=== PATIENT | male | born 1985 | race Two or more races ===

== ENCOUNTER 2018-04-03 16:32 | Emergency (ER) | payer SELFPAY ==
[2018-04-03] MEDS ORDERED: HYDROMORPHONE HCL INJ/PF 2 MG/ML AMPULE IV ONE (17:58)
[2018-04-03] MEDS ORDERED: DEXAMETHASONE SOD PHOS INJ 10 MG/1 ML VIAL IV ONE (17:58)
--- NOTE | 2018-04-03 18:08 | ER Document Report ---
ED Medical Screen (RME) - General Chief Complaint: Toothache Stated Complaint: TOOTHACHE Time Seen by Provider: 04/03/18 17:50 Mode of Arrival: Ambulatory Information source: Patient Notes: Patient is a 32-year-old male comes to emergency room with complaint of right sided face swelling. Patient states that got this being approximately 2 months ago while he was in [place] and then got better and has not had a problem with it since then. 15 days ago he started to notice a little bit of discomfort in his lower tooth area. It is progressively gotten worse but it exploded with discomfort pain and swelling in the past 2 days. Patient states he is unable to open his mouth at all. He has not eaten in 2-3 days. He states he has had fevers at night. He is able to swallow his own secretions and to drink fluids but is not able to open his mouth large enough to get any type of food inside. Patient denies any other medical problems he smokes less than 1/2 pack cigarettes a day and he works as a office cleaner. He has no known drug allergies. TRAVEL OUTSIDE OF THE [place] IN LAST 30 DAYS: No - HPI Onset: Last week Onset/Duration: Constant Quality of pain: Fullness, Pressure, Sharp, Stabbing, Throbbing Severity: Severe Pain Level: 4 Associated Symptoms: Chills, Fever Similar symptoms previously: Yes Recently seen / treated by doctor: No - Related Data Smoking: Less than 1 pack/day Frequency of alcohol use: Rare Drug Abuse: None What do you do for a living?: She will refer Allergies/Adverse Reactions: No Known Allergies Allergy (Unverified 04/03/18 16:32) Past Medical History - General Information source: Patient - Social History Cigarette use (# per day): Yes Chew tobacco use (# tins/day): No Frequency of alcohol use: Rare Drug Abuse: None Occupation: Refer Family history: Reviewed & Not Pertinent Renal/ Medical History: Denies: Hx Peritoneal Dialysis Review of Systems - Review of Systems Constitutional: No symptoms reported EENT: Dental problem - Is Cardiovascular: No symptoms reported Respiratory: No symptoms reported Gastrointestinal: No symptoms reported Genitourinary: No symptoms reported Male Genitourinary: No symptoms reported Musculoskeletal: No symptoms reported Skin: No symptoms reported Hematologic/Lymphatic: No symptoms reported Neurological/Psychological: No symptoms reported -: Yes All other systems reviewed and negative Physical Exam - Vital signs Vitals: Temp Pulse Resp BP Pulse Ox 98.5 F 76 16 135/90 H 99 04/03/18 16:35 04/03/18 16:35 04/03/18 16:35 04/03/18 16:35 04/03/18 16:35 Interpretation: Hypertensive - Notes Notes: Physical exam . Patient is a well-nourished well-developed 32-year-old male who is in no distress currently but he is in moderate in obvious pain and discomfort. Head: Examination of the head shows been normocephalic although the right side of his face is moderately swollen from the lower jaw. The swelling extends from the angle of the jaw forward to the chin and from there up to mid cheek. Further evaluation of the oral cavity is not capable of being done since patient has almost complete trismus and teeth will not move more than 1/8 of an inch. Palpation of this area shows it to be somewhat firm and warm. Heart: Examination patient's chest and lungs show he has bilateral breath sounds increased and clear to auscultation. He has a regular rate and rhythm cardiac. I have performed the initial evaluation of the patient and he is currently stable. I have ordered labs and diagnostic studies and patient will be picked up by another provider for continuation of care. I have personally seen and examined this patient. Course - Vital Signs Vital signs: Temp Pulse Resp BP Pulse Ox 98.5 F 76 16 135/90 H 99 04/03/18 16:35 04/03/18 16:35 04/03/18 16:35 04/03/18 16:35 04/03/18 16:35 Doctor's Discharge - Discharge Clinical Impression: Dental abscess
[2018-04-03 18:48] LABS: ABSOLUTE EOSINOPHILS # (AUTO) 0.1 10^3/uL (0.0-0.6); ABSOLUTE LYMPHOCYTES (AUTO) 1.9 10^3/uL (0.5-4.7); ABSOLUTE MONOCYTES (AUTO) 0.9 10^3/uL (0.1-1.4); ABSOLUTE NEUT (AUTO) 9.4 10^3/uL (1.7-8.2); BASOPHILS % (AUTO) 0.2 % (0-2); EOSINOPHILS % (AUTO) 0.4 % (0-6); HEMOGLOBIN 14.1 g/dL (13.5-17.0); LYMPHOCYTES % (AUTO) 15.3 % (13-45); MEAN CORPUSCULAR HEMOGLOBIN 30.7 pg (27.0-33.4); MEAN CORPUSCULAR HGB CONC 35.3 g/dL (32.0-36.0); MEAN CORPUSCULAR VOLUME 87 fl (80-97); MONOCYTES % (AUTO) 7.3 % (3-13); PLATELET COUNT 435 10^3/uL (150-450); RED BLOOD COUNT 4.59 10^6/uL (4.35-5.55); RED CELL DISTRIBUTION WIDTH 12.8 % (11.5-14.0); SEGMENTED NEUTROPHILS % (AUTO) 76.8 % (42-78); TOTAL CELLS COUNTED % (AUTO) 100 %; WHITE BLOOD COUNT 12.3 10^3/uL (4.0-10.5)
[2018-04-03 18:58] LABS: ALANINE AMINOTRANSFERASE 21 U/L (21-72); ALBUMIN 4.3 g/dL (3.5-5.0); ALKALINE PHOSPHATASE 105 U/L (38-126); ANION GAP 10 (5-19); ASPARTATE AMINO TRANSFERASE 24 U/L (17-59); BILIRUBIN,DIRECT 0.2 mg/dL (0.0-0.4); BILIRUBIN,TOTAL 0.6 mg/dL (0.2-1.3); BLOOD UREA NITROGEN 13 mg/dL (7-20); CALCIUM 9.6 mg/dL (8.4-10.2); CARBON DIOXIDE 27 mmol/L (22-30); CHLORIDE 103 mmol/L (98-107); GLUCOSE 97 mg/dL (75-110); POTASSIUM 4.7 mmol/L (3.6-5.0); SODIUM 140.3 mmol/L (137-145); TOTAL PROTEIN 7.9 g/dL (6.3-8.2)
--- NOTE | 2018-04-03 19:15 | RADIOLOGY REPORT (SQ) ---
EXAM DESCRIPTION: CT FACIAL AREA WITH COMPLETED DATE/TIME: 04/03/2018 6:48 pm REASON FOR STUDY: dental abscess with trismus severe COMPARISON: None. TECHNIQUE: Post contrast images through the facial bones and orbits windowed for bone and soft tissu e. Additional coronal and sagittal reconstructed images reviewed. All images stored on PACS. All CT scanners at this facility use dose modulation, iterative reconstruction, and/or weight based d osing when appropriate to reduce radiation dose to as low as reasonably achievable (ALARA). [facility]: Dose Right [facility]: CareDose [facility]: Dose Right [facility]: Teradose 4D [facility]: Social Reality CONTRAST TYPE AND DOSE: contrast/concentration: Isovue 350.00 mg/ml; Total Contrast Delivered: 75.0 ml; Total Saline Delivered: 55.0 ml RENAL FUNCTION: None required. The patient is less than 50 years old. RADIATION DOSE: CT Rad equipment meets quality standard of care and radiation dose reduction techniq ues were employed. CTDIvol: 30.4 mGy. DLP: 606 mGy-cm. . LIMITATIONS: None. FINDINGS: FACIAL BONES: No acute fracture. Chronic fractures involving the left nasal bone. TEETH: Periodontal disease is present. Specifically what appears to be the right 1st mandibular mol ar. There is lucency along the apex of the tooth with dental caries and an adjacent 2.7 x 1.5 cm low density collection in the deep soft tissues of the cheek. Probable forming abscess here. Generaliz ed skin thickening and subcutaneous edema along the right mandible. Additional dental caries and per iodontal disease in the left 1st mandibular molar. ORBITS: Intact. No fracture. Symmetric intact globes and retroorbital soft tissues. PARANASAL SINUSES: Mucosal thickening in the maxillary sinuses. No fluid levels. SOFT TISSUES: As above. Soft tissues otherwise look generally normal. INFERIOR BRAIN: Limited view. No acute findings. OTHER: No other significant finding. IMPRESSION: 1. Right mandibular 1st molar dental caries and periodontal disease. There is and efrain cent forming abscess along the right mandible as above. [facility] images are saved to PACS. TECHNICAL DOCUMENTATION: JOB ID: [id number] Quality ID # [id number]: Final reports with documentation of one or more dose reduction techniques (e.g., Au tomated exposure control, adjustment of the mA and/or kV according to patient size, use of iterative reconstruction technique) 2010 [employer]- All Rights Reserved Reading location - IP/workstation name: [email or web address]
--- NOTE | 2018-04-03 19:38 | ER Document Report ---
ED General - General Chief Complaint: Toothache Stated Complaint: TOOTHACHE Time Seen by Provider: 04/03/18 17:50 Mode of Arrival: Ambulatory Notes: 32-year-old male presents the emergency department with right-sided facial swelling and a toothache he had a previous tooth infection while in [place] and was prescribed antibiotics for it approximately 2 months ago. Since then he has been fine weeks ago noted some discomfort in his lower jaw. Patient cannot open his mouth, has not eaten solid foods in about 2 days but is able to tolerate oral liquids and handle his own secretions. Patient denies fevers, chills, di aphoresis, or any other symptoms of systemic illness. Patient denies shortness of breath, tightness in his throat, chest pain, nausea, vomiting, diarrhea. TRAVEL OUTSIDE OF THE [place] IN LAST 30 DAYS: No - HPI Patient complains to provider of: tooth infection - Related Data Allergies/Adverse Reactions: No Known Allergies Allergy (Unverified 04/03/18 16:32) Past Medical History - General Information source: Patient - Social History Smoking Status: Current Every Day Smoker Cigarette use (# per day): Yes Chew tobacco use (# tins/day): No Frequency of alcohol use: Rare Drug Abuse: None Occupation: Refer Family History: None Patient has suicidal ideation: No Patient has homicidal ideation: No Renal/ Medical History: Denies: Hx Peritoneal Dialysis Review of Systems - Review of Systems Constitutional: See HPI EENT: See HPI Cardiovascular: See HPI Respiratory: See HPI Gastrointestinal: See HPI Genitourinary: No symptoms reported Male Genitourinary: No symptoms reported Musculoskeletal: No symptoms reported Skin: No symptoms reported Hematologic/Lymphatic: No symptoms reported Neurological/Psychological: No symptoms reported Physical Exam - Vital signs Vitals: Temp Pulse Resp BP Pulse Ox 98.5 F 76 16 135/90 H 99 04/03/18 16:35 04/03/18 16:35 04/03/18 16:35 04/03/18 16:35 04/03/18 16:35 Interpretation: Normal - Notes Notes: Reviewed vital signs and nursing note as charted by RN. CONSTITUTIONAL: Well-appearing, well-nourished, acting appropriately for age HEAD: Normocephalic, atraumatic, significant swelling in area of right mandible and cheek EYES: PERRL, Conjunctivae clear, no drainage, EOMI, no scleral icterus ENT: External ears without lesions, External auditory canal is patent, , no tonsillar hypertrophy, airway patent, mucous membranes pink and moist NECK: Supple, no cervical lymphadenopathy, no masses patient unable to open his mouth due to swelling, purulent discharge noted in the area of tooth 30 or 31. CARD: Regular rate and rhythm, no murmurs, no rubs, no gallops, capillary refill < 2 seconds, symmetric pulses RESP: The lungs are clear to auscultation bilaterally, no wheezing, no rales, no rhonchi. Respiratory rate and effort are normal, normal chest excursion. No respiratory distress, no retractions, no stridor, no nasal flaring, no accessory muscle use. ABD/GI: Normal bowel sounds, non-distended, soft, non-tender, no rebound, no guarding, no palpable organomegaly EXT: Normal ROM in all joints, non-tender to palpation, no effusions, no edema SKIN: Normal color for age and race, warm, dry, good turgor, no acute lesions noted NEURO: No facial asymmetry, moves all extremities equally, motor and sensory function intact Course - Re-evaluation Re-evalutation: 04/03/18 19:42 32-year-old pleasant male presents to the emergency department with right facial swelling. Previous dental infection in [place] 2 months ago with symptoms that started re-presenting about 2 weeks ago. On physical exam significant swelling of his right mandible and cheek, purulence noted in the buccal aspect of his lower right molars around tooth #29 [address] showed forming abscess along right mandible. Will discuss with possible course of action as there is a path for infection to escape with decision to consult dentist or prescribe antibiotics with close follow-up. 04/03/18 20:[address] Marques. He aspirated the area of abscess with an 18- gauge needle and suctioned out moderate amount of purulent material. Plan is to prescribe a course of clindamycin with pain control. Will give first dose of clindamycin here. - Vital Signs Vital signs: Temp Pulse Resp BP Pulse Ox 98.5 F 76 16 135/90 H 99 04/03/18 16:35 04/03/18 16:35 04/03/18 16:35 04/03/18 16:35 04/03/18 16:35 - Laboratory Result Diagrams: 04/03/18 18:09 04/03/18 18:09 Laboratory results interpreted by me: 04/03/18 18:09 WBC 12.3 H Absolute Neutrophils 9.4 H Discharge - Discharge Clinical Impression: Dental abscess Condition: Good Disposition: HOME, SELF-CARE Instructions: Abscess ([facility]), [facility], Clindamycin ([facility]) Prescriptions: Clindamycin HCl [Cleocin 300 mg Capsule] 450 mg PO TID 7 Days #21 capsule
[2018-04-03] MEDS ORDERED: HYDROCODONE/ACETAMINOPHEN 5-325 MG (6 TAB/ER DISP) PO PRN (20:28)
[2018-04-03] MEDS ORDERED: CLINDAMYCIN HCL 150 MG CAPSULE PO ONE (20:29)
[2018-04-03] MEDS ORDERED: CLINDAMYCIN 600 MG/D5W RTU 600 MG/50 ML RTUPB IV ONE (20:41)
[2018-04-03 21:52] VITALS: BP 137/75
== END 2018-04-03 21:52 | disposition home or self-care (01) ==
LOC: ER 16:32
DX: K04.7 Periapical abscess without sinus (principal); K08.89 Other specified disorders of teeth and supporting structures; R22.0 Localized swelling, mass and lump, head; R68.84 Jaw pain; F17.210 Nicotine dependence, cigarettes, uncomplicated
CPT/HCPCS: 99283; 96375; 96365; 36415; 85025; 80053; 70487; J1170; J1100